=== PATIENT | male | born 1995 | race Caucasian/White ===

== ENCOUNTER 2019-04-08 22:09 | Emergency (ER) | payer OTHER ==
[2019-04-08] MEDS ORDERED: SODIUM CHLORIDE 0.9% 500 ML 500 ML IV STA (22:32)
--- NOTE | 2019-04-08 22:52 | XR ---
EXAMINATION TYPE: XR chest 2V DATE OF EXAM: 04/08/2019 COMPARISON: NONE HISTORY: Chest pain TECHNIQUE: FINDINGS: Heart and mediastinum are normal. Lungs are clear of infiltrate. Bony thorax and soft tissu es appear normal. Diaphragm is normal. IMPRESSION: Normal chest
[2019-04-08 23:13] LABS: Appearance,Urine Clear (Clear); Bilirubin,Urine Negative (Negative); Blood,Urine Negative (Negative); Color,Urine Yellow; Glucose,Urine (UA) Negative (Negative); Ketones,Urine Negative (Negative); Leukocyte Esterase,Urine Negative (Negative); Nitrite,Urine Negative (Negative); Protein,Urine Negative (Negative); Specific Gravity,Urine 1.018 (1.001-1.035); Urobilinogen,Urine <2.0 mg/dL (<2.0)
[2019-04-08 23:15] LABS: Basophils # (A) 0.1 k/uL (0-0.2); Basophils % (A) 2 %; Eosinophils # (A) 0.1 k/uL (0-0.7); Eosinophils % (A) 1 %; HCT 45.8 % (39.0-53.0); HGB 15.4 gm/dL (13.0-17.5); Lymphocytes # (A) 2.2 k/uL (1.0-4.8); Lymphocytes % (A) 38 %; MCH 31.5 pg (25.0-35.0); MCHC 33.6 g/dL (31.0-37.0); MCV 93.9 fL (80.0-100.0); Mean Platelet Volume 8.6; Monocytes # (A) 0.4 k/uL (0-1.0); Monocytes % (A) 7 %; Neutrophils # (A) 2.9 k/uL (1.3-7.7); Neutrophils % (A) 49 %; Platelet Count 199 k/uL (150-450); RBC 4.88 m/uL (4.30-5.90); RDW 11.8 % (11.5-15.5); WBC 5.8 k/uL (3.8-10.6)
[2019-04-08 23:26] LABS: Partial Thromboplastin Time 26.2 sec (22.0-30.0); Prothrombin Time 10.3 sec (9.0-12.0)
[2019-04-08 23:30] LABS: ALT 22 U/L (4-49); AST 24 U/L (17-59); African American GFR (CKD) >90 (>60 ml/min/1.73 sqM); Albumin 4.7 g/dL (3.5-5.0); Alkaline Phosphatase 49 U/L (38-126); Anion Gap 7 mmol/L; Blood Urea Nitrogen 17 mg/dL (9-20); Calcium 9.6 mg/dL (8.4-10.2); Carbon Dioxide 31 mmol/L (22-30); Chloride 102 mmol/L (98-107); Creatine Kinase 119 U/L (55-170); Glucose 93 mg/dL (74-99); Magnesium 1.8 mg/dL (1.6-2.3); Non-African American GFR(CKD) >90 (>60 ml/min/1.73 sqM); Potassium 4.4 mmol/L (3.5-5.1); Sodium 140 mmol/L (137-145); Total Bilirubin 0.6 mg/dL (0.2-1.3); Total Protein 7.3 g/dL (6.3-8.2)
--- NOTE | 2019-04-09 00:29 | ED ---
General Adult HPI - General Chief complaint: Chest Pain Stated complaint: electric shock Time Seen by Provider: 04/08/19 22:26 Source: patient, RN notes reviewed, old records reviewed Mode of arrival: ambulatory Limitations: no limitations - History of Present Illness Initial comments: 23-year-old male patient with no pertinent past history parents ED for chief complaint evaluation of chest pain. Patient reports that earlier today he received an electric shock from a counseled space heater. Patient was that he went to turn on his face either and he felt a electrical shock to his right arm. Denies any quintanilla. Patient reports that he began to experience some substernal chest discomfort. Denies any shortness of breath. Denies any complaints at th is time. Patient reports this happened approximately 10 AM he has been having some mild discomfort ever since. Requests evaluation to ensure that his heart was not affected. Systemic: Pt denies fatigue, fever/chills, rash. Pt denies weakness, night sweats, weight loss. Neuro: Pt denies headache, visual disturbances, syncope or pre-syncope. HEENT: Pt denies ocular discharge or irritation, otalgia, rhinorrhea, pharyngitis or notable lymphadenopathy. Cardiopulmonary: Pt denies chest pain, SOB, heart palpitations, dyspnea on exertion. Abdominal/GI: Pt denies abdominal pain, n/v/d. : Pt denies dysuria, burning w/ urination, frequency/urgency. Denies new onset urinary or bowel incontinence. MSK: Pt denies myalgia, loss of strength or function in extremities. Neuro: Pt denies new onset weakness, paresthesias. - Related Data Allergies Allergy/AdvReac Type Severity Reaction Status Date / Time No Known Allergies Allergy Verified 04/08/19 22:18 Review of Systems ROS Statement: Those systems with pertinent positive or pertinent negative responses have been documented in the HPI. ROS Other: All systems not noted in ROS Statement are negative. Past Medical History Past Medical History: No Reported History History of Any Multi-Drug Resistant Organisms: None Reported Past Surgical History: No Surgical Hx Reported Past Psychological History: No Psychological Hx Reported Smoking Status: Never smoker Past Alcohol Use History: None Reported Past Drug Use History: None Reported General Exam - General Exam Comments Initial Comments: Constitutional: NAD, AOX3, Pt has pleasant affect. HEENT: NC/AT, trachea midline, neck supple, no lymphadenopathy. Posterior pharynx non erythematous, without exudates. External ears appear normal, without discharge. Mucous membranes moist. Eyes PERRLA, EOM intact. There is no scleral icterus. No pallor noted. Cardiopulmonary: RRR, no murmurs, rubs or gallops, no JVD noted. Lungs CTAB in anterior and posterior grimaldo. No peripheral edema. Chest pain reproducible upon palpation. Abdominal exam: Abdomen soft and non-distended. Abdomen non-tender to palpation in all 4 quadrants. Bowel sounds active in LLQ. No hepatosplenomegaly. No ecchymosis Neuro: CN II-XII grossly intact. No nuchal rigidity. No raccon eyes, no mahoney sign, no hemotympanum. No cervical spinal tenderness. MSK: No quintanilla noted on upper or lower extremities. No posterior calf tenderness bilaterally, homans sign negative bilaterally. Posterior tibialis and radial pulse +2 bilaterally. Sensation intact in upper and lower extremities. Full active ROM in upper and lower extremities, 5/5 stregnth. Limitations: no limitations Course Vital Signs 04/08/19 22:15 Temperature 98.4 F Pulse Rate 83 Respiratory 20 Rate Blood Pressure 117/69 O2 Sat by Pulse 99 Oximetry Medical Decision Making - Medical Decision Making 23-year-old male patient with no pertinent past history parents ED for chief complaint evaluation of chest pain. Patient reports that earlier today he received an electric shock from a counseled space heater. Patient was that he went to turn on his face either and he felt a electrical shock to his right arm. Denies any quintanilla. Patient reports that he began to experience some substernal chest discomfort. Denies any shortness of breath. Denies any complaints at this time. Patient reports this happened approximately 10 AM he has been having some mild discomfort ever since. Requests evaluation to ensure that his heart was not affected. Patient will signs stable, afebrile. Chest pain as reproducible upon palpation. Laboratory investigations were obtained and are non-impressive. Creatine kinase is within normal limits. Troponin is negative. EKG is nonischemic. Chest x-ray is negative. Upon reevaluation patient not have any discomfort. Patient is PERC negative.. Patient will be discharged with follow-up with primary care provider tomorrow and return to ER if condition worsens. Case discussed with Dr. Gomez. - Lab Data Result diagrams: 04/08/19 22:33 04/08/19 22:33 Lab Results 04/08/19 04/08/19 04/08/19 Range/Units 22:33 22:33 22:33 WBC 5.8 (3.8-10.6) k/uL RBC 4.88 (4.30-5.90) m/uL Hgb 15.4 (13.0-17.5) gm/dL Hct 45.8 (39.0-53.0) % MCV 93.9 (80.0-100.0) fL MCH 31.5 (25.0-35.0) pg MCHC 33.6 (31.0-37.0) g/dL RDW 11.8 (11.5-15.5) % Plt Count 199 (150-450) k/uL Neutrophils % 49 % Lymphocytes % 38 % Monocytes % 7 % Eosinophils % 1 % Basophils % 2 % Neutrophils # 2.9 (1.3-7.7) k/uL Lymphocytes # 2.2 (1.0-4.8) k/uL Monocytes # 0.4 (0-1.0) k/uL Eosinophils # 0.1 (0-0.7) k/uL Basophils # 0.1 (0-0.2) k/uL PT 10.3 (9.0-12.0) sec INR 1.0 (<1.2) APTT 26.2 (22.0-30.0) sec Sodium 140 (137-145) mmol/L Potassium 4.4 (3.5-5.1) mmol/L Chloride 102 (98-107) mmol/L Carbon Dioxide 31 H (22-30) mmol/L Anion Gap 7 mmol/L BUN 17 (9-20) mg/dL Creatinine 0.87 (0.66-1.25) mg/dL Est GFR (CKD-EPI)AfAm >90 (>60 ml/min/1.73 sqM) Est GFR (CKD-EPI)NonAf >90 (>60 ml/min/1.73 sqM) Glucose 93 (74-99) mg/dL Calcium 9.6 (8.4-10.2) mg/dL Magnesium 1.8 (1.6-2.3) mg/dL Total Bilirubin 0.6 (0.2-1.3) mg/dL AST 24 (17-59) U/L ALT 22 (4-49) U/L Alkaline Phosphatase 49 (38-126) U/L Creatine Kinase 119 (55-170) U/L Troponin I (0.000-0.034) ng/mL Total Protein 7.3 (6.3-8.2) g/dL Albumin 4.7 (3.5-5.0) g/dL Urine Color Urine Appearance (Clear) Urine pH (5.0-8.0) Ur Specific [place] (1.001-1.035) Urine Protein (Negative) Urine Glucose (UA) (Negative) Urine Ketones (Negative) Urine Blood (Negative) Urine Nitrite (Negative) Urine Bilirubin (Negative) Urine Urobilinogen (<2.0) mg/dL Ur Leukocyte Esterase (Negative) 04/08/19 04/08/19 Range/Units 22:33 22:52 WBC (3.8-10.6) k/uL RBC (4.30-5.90) m/uL Hgb (13.0-17.5) gm/dL Hct (39.0-53.0) % MCV (80.0-100.0) fL MCH (25.0-35.0) pg MCHC (31.0-37.0) g/dL RDW (11.5-15.5) % Plt Count (150-450) k/uL Neutrophils % % Lymphocytes % % Monocytes % % Eosinophils % % Basophils % % Neutrophils # (1.3-7.7) k/uL Lymphocytes # (1.0-4.8) k/uL Monocytes # (0-1.0) k/uL Eosinophils # (0-0.7) k/uL Basophils # (0-0.2) k/uL PT (9.0-12.0) sec INR (<1.2) APTT (22.0-30.0) sec Sodium (137-145) mmol/L Potassium (3.5-5.1) mmol/L Chloride (98-107) mmol/L Carbon Dioxide (22-30) mmol/L Anion Gap mmol/L BUN (9-20) mg/dL Creatinine (0.66-1.25) mg/dL Est GFR (CKD-EPI)AfAm (>60 ml/min/1.73 sqM) Est GFR (CKD-EPI)NonAf (>60 ml/min/1.73 sqM) Glucose (74-99) mg/dL Calcium (8.4-10.2) mg/dL Magnesium (1.6-2.3) mg/dL Total Bilirubin (0.2-1.3) mg/dL AST (17-59) U/L ALT (4-49) U/L Alkaline Phosphatase (38-126) U/L Creatine Kinase (55-170) U/L Troponin I <0.012 (0.000-0.034) ng/mL Total Protein (6.3-8.2) g/dL Albumin (3.5-5.0) g/dL Urine Color Yellow Urine Appearance Clear (Clear) Urine pH 7.0 (5.0-8.0) Ur Specific [place] 1.018 (1.001-1.035) Urine Protein Negative (Negative) Urine Glucose (UA) Negative (Negative) Urine Ketones Negative (Negative) Urine Blood Negative (Negative) Urine Nitrite Negative (Negative) Urine Bilirubin Negative (Negative) Urine Urobilinogen <2.0 (<2.0) mg/dL Ur Leukocyte Esterase Negative (Negative) - EKG Data -: EKG Interpreted by Me (and Dr. Gomez) EKG Comments: Ventricular rate 67, RI interval 140, QRS 112, QT/QTC 382/43. Normal sinus rhythm, normal EKG, no concern for acute ischemia. Disposition Clinical Impression: Chest wall pain Disposition: HOME SELF-CARE Condition: Stable Instructions (If sedation given, give patient instructions): Chest Pain (ED) Additional Instructions: Follow-up with primary care provider tomorrow, return to ER if condition worsens in anyway. Is patient prescribed a controlled substance at d/c from ED?: No Referrals: Rell Funez DO [Primary Care Provider] - 1-2 days
[2019-04-09 00:59] VITALS: BP 108/72; PULSE 63; RESP 16; TEMP 97.6
== END 2019-04-09 00:59 | disposition home or self-care (01) ==
LOC: EC 22:09
DX: R07.89 Other chest pain (principal); T75.4XXA Electrocution, initial encounter
CPT/HCPCS: 36415; 71046; 80053; 81003; 82550; 83735; 84484; 85025; 85610; 85730; 93005; 96360; 96361; 99285